=== PATIENT | male | born 1980 | race Caucasian/White ===

== ENCOUNTER 2018-01-28 11:33 | Emergency (ER) | payer SELFPAY ==
[~2018-01-28] VITALS: Ht 175.3 cm; Wt 86.6 kg
[2018-01-28 11:39] VITALS: Ht 175.3 cm; Wt 86.6 kg
[2018-01-28 12:01] VITALS: BP 147/94
== END 2018-01-28 12:01 | disposition home or self-care (01) ==
LOC: ED 11:33
DX: B35.3 Tinea pedis (principal)